=== PATIENT | male | born 1990 | race Two or more races ===

== ENCOUNTER → 2022-06-20 12:51 | Outpatient (BNVA) | payer OTHER, SELFPAY | PROVIDERS: PCP Internal Medicine; Visit Provider Internal Medicine | DX: K50.10 Crohn's disease of large intestine without complications (principal) | CPT/HCPCS: 99202; 99212 ==

== ENCOUNTER 2022-07-14 09:47 | Outpatient (REF) | payer OTHER, SELFPAY ==
[2022-07-14 10:57] LABS: Hemoglobin 15.3 g/dl (14.0-18.0); Mean Corpuscular HGB Conc 32.6 g/dl (31.0-36.0); Mean Corpuscular Hemoglobin 28.1 pg (27.0-33.0); Mean Corpuscular Volume 86.2 fL (80.0-98.0); Mean Platelet Volume 9.8 fL (9.4-12.4); Platelet Count 258 X10*3/uL (160-400); Red Blood Count 5.45 X10*6/uL (4.60-5.80); Red Cell Distribution Width 13.2 % (11.0-16.0)
[2022-07-14 11:44] LABS: Erythrocyte Sedimentation Rate 7 MM/HR (0-15)
[2022-07-14 12:09] LABS: Alanine Aminotransferase 61 U/L (0-40); Albumin Level 4.7 g/dL (3.5-5.0); Alkaline Phosphatase 104 U/L (39-117); Anion Gap 14 (12-20); Aspartate Amino Transferase 39 U/L (5-37); Bilirubin Total 0.4 mg/dL (0.0-1.0); Blood Urea Nitrogen 16 mg/dL (9-16); C Reactive Protein 0.25 mg/dL (< or = 0.50); Calcium 9.6 mg/dL (8.4-10.2); Carbon Dioxide 27 mmol/L (22-29); Chloride 103 mmol/L (96-108); Estimated Glomerular Filt Rate > 60; Glucose Random 89 mg/dL (60-115); Potassium 3.9 mmol/L (3.3-5.1); Sodium 140 mmol/L (135-145)
[2022-07-14 12:14] LABS: TSH reflex Free T4 1.27 uIU/mL (0.32-4.0)
[2022-07-14 12:19] LABS: Hepatitis A Antibody IgG Nonreactive (Nonreactive); ~Hepatitis A Antibody IgG 0.26 S/CO (0.00-0.99)
[2022-07-14 12:25] LABS: HBS Num1 0.49 mIU/mL (0-7.99); HBc Num1 0.08 S/CO (0.00-0.79); HBsAGNum1 0.27 S/CO (0.00-0.99); Hepatitis A Antibody IgM 0.15 Index (0-0.79); Hepatitis B Core Antibody Nonreactive (Nonreactive); Hepatitis B Surface Antigen Negative (Negative); ~HepC Num1 0.27 S/CO (0.00-0.79); ~Hepatitis A Antibody IgM Nonreactive (Nonreactive); ~Hepatitis B Surface Antibody NONREACTIVE (Nonreactive); ~Hepatitis C Antibody Nonreactive (Nonreactive)
[2022-07-14 12:32] LABS: Thyroid Stimulating Hormone 1.18 uIU/mL (0.32-4.0)
[2022-07-14 12:33] LABS: HBS Num1 0.32 mIU/mL (0-7.99); HBc Num1 0.16 S/CO (0.00-0.79); HBsAGNum1 0.24 S/CO (0.00-0.99); HIV AB/AG Nonreactive (Nonreactive); HIV Num 1 0.06 S/CO (0.00-0.99); Hepatitis B Core Antibody Nonreactive (Nonreactive); Hepatitis B Surface Antigen Negative (Negative); ~HepC Num1 0.27 S/CO (0.00-0.79); ~Hepatitis B Surface Antibody NONREACTIVE (Nonreactive); ~Hepatitis C Antibody Nonreactive (Nonreactive)
[2022-07-16 13:43] LABS: Immunoglobulin A 316 mg/dL (47-310)
[2022-07-16 14:04] LABS: Transglutaminase IgA <1.0 U/mL
[2022-07-17 01:19] LABS: TS Negative Control Passed; TS Panel A 0; TS Panel B 0; TS Positive Control Passed; TSpotTB Negative (Negative)
[2022-07-23 18:18] LABS: TPMT Activity 14
== END 2022-07-14 09:48 | disposition home or self-care (01) ==
LOC: HO.LAB 09:47
PROVIDERS: Physician Assistant; PCP Internal Medicine; Visit Provider Internal Medicine
DX: Z11.4 Encounter for screening for human immunodeficiency virus [HIV] (principal); R10.9 Unspecified abdominal pain; R19.7 Diarrhea, unspecified; K50.10 Crohn's disease of large intestine without complications; Z78.9 Other specified health status
CPT/HCPCS: 36415; 80053; 82657; 82784; 84443; 85027; 85652; 86140; 86364; 86481; 86704; 86706; 86708; 86709; 86803; 87340; 87389

== ENCOUNTER 2022-07-16 10:15 | Outpatient (REF) | payer OTHER, SELFPAY ==
[2022-07-16 11:13] LABS: CDiff Gene PCR NEGATIVE (Negative)
[2022-07-16 12:06] LABS: Adenovirus F 40/41 Not Detected (Not Detect.); Astrovirus Not Detected (Not Detect.); Campylobacter Not Detected (Not Detect.); Cryptosporidium Not Detected (Not Detect.); Cyclospora cayetanensis Not Detected (Not Detect.); E. coli EAEC Not Detected (Not Detect.); E. coli EPEC Not Detected (Not Detect.); E. coli ETEC Not Detected (Not Detect.); E. coli STEC Not Detected (Not Detect.); Entamoeba histolytica Not Detected (Not Detect.); Giardia lamblia Not Detected (Not Detect.); Norovirus GI/GII Not Detected (Not Detect.); Plesiomonas shigelloides Not Detected (Not Detect.); Rotavirus A Not Detected (Not Detect.); Salmonella Not Detected (Not Detect.); Sapovirus Not Detected (Not Detect.); Shigella sp./EIEC Not Detected (Not Detect.); Vibrio Not Detected (Not Detect.); Vibrio Cholerae Not Detected (Not Detect.); Yersinia enterocolitica Not Detected (Not Detect.)
[2022-07-24 20:19] LABS: Calprotectin, Fecal 368 mcg/g
== END 2022-07-16 10:16 | disposition home or self-care (01) ==
LOC: HO.LNP 10:15
PROVIDERS: Visit Provider Internal Medicine
DX: K50.10 Crohn's disease of large intestine without complications (principal)
CPT/HCPCS: 83993; 87493; 87507

== ENCOUNTER → 2022-07-23 10:41 | Outpatient (BNVA) | payer OTHER, SELFPAY | PROVIDERS: PCP Internal Medicine; Visit Provider Internal Medicine | DX: K50.10 Crohn's disease of large intestine without complications (principal); R74.01 Elevation of levels of liver transaminase levels | CPT/HCPCS: 99212 ==

== ENCOUNTER 2022-07-28 06:45 | Outpatient (REF) | payer OTHER, SELFPAY ==
--- NOTE | ~2022-07-28 | CT_ITS ---
EXAMINATION: CT ENTEROGRAPHY ABDOMEN AND PELVIS WITH CONTRAST CLINICAL INFORMATION: Ulcerative colitis. COMPARISON: None TECHNIQUE: Study performed with oral VoLumen (1350 mL) and 480 mL of water to distend the abdomen. The patient was injected with 85 mL Omnipaque 350 intravenous contrast which was administered without adverse effect. Coronal and sagittal reformatted images were obtained at the technologist's workstation. This CT examination was performed using dose optimization techniques as appropriate, variously including the following: *Automated exposure control *Adjustment of mA and/or kV according to patient size (this includes techniques or standardized protocols for targeted exams where dose is matched to indication/reason for exam; i.e. extremities or head) *Use of iterative reconstruction technique DLP: 419 mGy-cm FINDINGS: GASTROINTESTINAL FINDINGS: Stomach: Well distended and normal in appearance. Small intestine: There is mild dilatation of the proximal small bowel and wall thickening. This may be within normal variant range. No definite evidence of small bowel involvement is seen. Large intestine: There is abnormal appearance of the colon with mild wall thickening and fatty infiltration of the bowel wall. There is prominence of the adjacent vasculature/vasa recta. This is greatest in the sigmoid colon where there is also a haustral appearance. Appearance is suggestive of changes from old inflammatory colitis. No evidence of significant wall thickening or enhancement is seen to suggest acute colitis. No evidence of obstruction or stricture. There is mild diverticulosis.. The appendix is normal. No perirectal changes. Additional findings: Small shotty small bowel mesentery lymphadenopathy. No significant mesenteric or retroperitoneal lymphadenopathy is seen. No abdominal abscess or fistulous tract demonstrated. ABDOMINAL AND PELVIC CT FINDINGS: Liver, gallbladder, biliary tract: There are innumerable small cysts or cystic lesions in the liver. Caroli's disease, polycystic liver disease and biliary hamartomas or von Meyenburg complexes should be considered. The liver is otherwise normal. The gallbladder is normal. There is no biliary duct dilatation. Pancreas: Normal. Spleen: Normal. Adrenal glands and kidneys: Normal. Ureters and bladder: Bladder not optimally distended. Lymphovascular structures: Prominent vasa recta adjacent to the colon. Shotty mesenteric lymphadenopathy. No enlarged lymph nodes. No ascites. No hernia. Bones: Normal Lung bases: Normal. CT/CT enterography IMPRESSION: Changes in the colon suggestive of old inflammatory colitis. No evidence of acute colitis or definite small bowel involvement. Numerous small cystic liver lesions. Differential would include Caroli's disease, polycystic liver disease and biliary hamartomas or von Meyenburg complexes.
[2022-07-28] MEDS: Sorbitol/Mannit/Xanth Imaging 500 ML LIQUID 1500 ML PO (08:47)
[2022-07-28] MEDS: iohexoL 350 MG/ML 100 ML INFUS..BTL IV (08:48)
== END 2022-07-28 06:46 | disposition home or self-care (01) ==
LOC: HO.CT 06:45
PROVIDERS: Visit Provider Physician Assistant
DX: K51.90 Ulcerative colitis, unspecified, without complications (principal); R10.9 Unspecified abdominal pain
CPT/HCPCS: 74177; Q9967

== ENCOUNTER 2022-08-06 06:38 | Day surgery (SDC) | payer OTHER, SELFPAY ==
[2022-08-01 09:38] VITALS: BMI 29.8
--- NOTE | 2022-08-05 10:33 | P.CONAN_ITS ---
Documented by User: Maria R Felipe NP 08/05/22 10:33 HPI - Anesthesia Eval Consult details Narrative: 31yo M for Colonoscopy PMFSH Active Problems Active Problems: All Active Problems (Updated 08/01/22 @ 15:27 by Codi Philippe) Overweight (Acute) Psoriasis (Acute) Mild persistent asthma (Acute) Ulcerative colitis (Acute) Physical exam (Acute) Poor historian (Acute) Abdominal pain (Acute) Crohn's colitis (Acute) Elevated liver transaminase level (Acute) Abnormal liver ultrasound (Acute) Past Medical History Medical History Mild persistent asthma Overweight Physical exam Psoriasis Ulcerative colitis Family History Family History Mother No problems noted. Father No problems noted. Maternal Grandfather Cancer Surgical History Surgical History Hx of colonoscopy No pertinent past surgical history Social History Social History Housing: Apartment Alcohol intake: current Alcohol intake frequency: does not drink Alcohol type: beer Patient Tobacco Use Status: Never used Tobacco e-Cigarette/Vaping Use: Never Used Second Hand Smoke Exposure: No Are you DNR?: No Advance Directives: No Advance Directives Information Provided: Yes Nutrition Risks: No Nutritional Risk service: No Current occupational status: employed Meds Allergies Allergy/AdvReac Type Severity Reaction Status Date / Time shellfish derived AdvReac Intermediate fatigue Verified 08/01/22 15:27 Exam Exam Date and Time: August 05, 2022 1033 Height,Weight and Vital Signs: Height 5 ft 6 in Weight 83.915 kg Pertinent Lab Results Pertinent Lab Results: Laboratory Tests 07/14/22 07/14/22 10:13 10:13 WBC 6.0 Hgb 15.3 Hct 47.0 Plt Count 258 Sodium 140 Potassium 3.9 Chloride 103 Carbon Dioxide 27 BUN 16 Creatinine 0.85 Assessment and Plan Assessment Anesthesia Assessment: Chart Reviewed Documented by User: Nicole Toledo MD 08/06/22 07:53 [facility] Active Problems Active Problems: All Active Problems (Updated 08/01/22 @ 15:27 by Codi Philippe) Overweight (Acute) Psoriasis (Acute) Mild persistent asthma (Acute)- inhaler prn Ulcerative colitis (Acute) Physical exam (Acute) Poor historian (Acute) Abdominal pain (Acute) Crohn's colitis (Acute) Elevated liver transaminase level (Acute) Abnormal liver ultrasound (Acute) Past Medical History Medical History Mild persistent asthma Overweight Physical exam Psoriasis Ulcerative colitis Family History Family History Mother No problems noted. Father No problems noted. Maternal Grandfather Cancer Family history of problems with anesthesia: No Surgical History Surgical History Hx of colonoscopy No pertinent past surgical history History of Problems with Anesthesia: No Social History Social History Housing: Apartment Alcohol intake: current Alcohol intake frequency: does not drink Alcohol type: beer Patient Tobacco Use Status: Never used Tobacco e-Cigarette/Vaping Use: Never Used Second Hand Smoke Exposure: No Are you DNR?: No Advance Directives: No Advance Directives Information Provided: Yes Nutrition Risks: No Nutritional Risk service: No Current occupational status: employed Meds Allergies Allergy/AdvReac Type Severity Reaction Status Date / Time shellfish derived AdvReac Intermediate fatigue Verified 08/01/22 15:27 Exam Height,Weight and Vital Signs: Height 5 ft 6 in Weight 83.915 kg Vital Signs Temp Pulse Resp BP Pulse Ox O2 Del Method 08/06/22 06:42 98.3 F 72 18 119/82 98 Room Air Airway Mallampati Class: II TM Dist: >3cm Neck ROM: Full Loose/Missing/Broken Teeth: No (Denies broken, loose, missing teeth) Heart: RRR Lungs: CTAB Assessment and Plan Assessment Anesthesia Assessment: Anesthesia Plan Discussed Final Anesthetic Review Family History of Problems with Anesthesia: No History of Problems with Anesthesia: No NPO: Yes ASA Class: II Final Preanesthetic Review: No Changes in Pt Med Stat, Meds/Allgs Chart Reviewed, Consent Obtained/Reviewed and Anes Risks/Benef Reviewed Patient Risk: Low Procedure Risk: Low Assessment/Block/Sedation in SS: Assess/Block/Sedation-SS Anesthetic Plan Anesthetic Plan: MAC: Disposition: Standard PACU
[2022-08-06 06:42] VITALS: BP 119/82; PULSE 72; RESP 18; TEMP 36.8; O2SAT 98
[2022-08-06] MEDS: Lactated Ringers 1,000 ML 100 ML IVCONT (07:03)
--- NOTE | 2022-08-06 07:31 | MHC.SHP ---
Pre-Procedural Eval Section A Date of Service: 08/06/22 The patient is an INPATIENT: No The History & Physical has been completed within 30 days and I have reviewed it.: Yes Section B Chief Complaint: Abd pain, diarrhea, colitis Allergies: Allergies Allergy/AdvReac Type Severity Reaction Status Date / Time shellfish derived AdvReac Intermediate fatigue Verified 08/01/22 15:27 Plan Diagnosis/Plan: Unchanged I have reviewed the history and physical and performed a pertinent physical examination on my patient. No changes have occurred unless specified. Time Spent With Patient Time: Total time managing care of this patient today ____ minutes.
--- NOTE | 2022-08-06 07:32 | P.OP_ITS ---
Operative Note Operative Note Date of Service: 08/06/22 Narrative: Procedure: Colonoscopy Indication: Abd pain, diarrhea, colitis Endoscopist: Evelyn Milian MD Anesthesia Provider: Shelia Lin CRNA Anesthesia type: MAC Instrument: Olympus [id number]-H190L Consent: Indication, risks vs benefits, and alternatives were discussed with the patient who gave written informed consent to proceed. An automotive parts interpreter was utilized to assist with the consent. EKG, pulse, pulse oximetry and blood pressure were monitored throughout the procedure. Please see anesthesia flowsheet. Procedure: The patient was brought to the procedure room and placed in the left lateral decubitus position. IV medications were administered by the anesthesia provider in attendance. A digital rectal exam was performed which was normal. Of note patient was noted to have a skin plaque patch above the anus and multiple small ring/target like lesions in upper thighs. The colonoscope was then inserted through the anus and advanced through the colon to the cecum at 75 cm,and terminal ileum. Mucosa was carefully examined under high definition white light as the instrument was slowly withdrawn in a retrograde panoramic fashion. Retroflexion was performed in rectum. The procedure was not difficult. There were no immediate obvious complications. The quality of the prep was BBPS: 3+2+3 = adequate. Withdrawal time 17 minutes. Limitations: No limitations. Findings: Mucosa: Loss of normal vacular pattern and haustral folds in proximal sigmoid colon and distal descending colon. Erythema and exudates noted in the cecum. Ascending colon, transverse colon and rectum appeared normal endoscopically. x2 erosions were noted in terminal ileum within 5 cm of the ileocecal valve. The remaining terminal ileum (intubated up to 15 cm) was normal in appearance. Cold forceps biopsies were taken from terminal ileum and each section of the colon and sent for histology. Protruding lesions: * Medium internal hemorrhoids without stigmata of recent bleeding. Impression: 1. Erosions in distal T.I (biopsy) 2. Erythema and exudates noted in the cecum. (biopsy) 3. Loss of normal vascular pattern and haustral folds in proximal sigmoid colon and distal descending colon. (biopsy) 4. Remaining colon and rectum with normal endoscopic appearance (biopsy) 3. Internal hemorrhoids Recommendations: - Follow path results. - Short course of Prednisone 40mg PO x 7 days followed by a taper. - Treatment with Infliximab 5mg/kg IV as planned will be initiated. - Follow up in office as scheduled.
[2022-08-06 08:27] VITALS: BP 107/71; PULSE 80; RESP 16; TEMP 36.4; O2SAT 97
[2022-08-06 08:42] VITALS: BP 121/81; PULSE 74; RESP 16; TEMP 36.4; O2SAT 97
== END 2022-08-06 09:33 | disposition home or self-care (01) ==
PROVIDERS: PCP Internal Medicine; Visit Provider Internal Medicine
PROC: 0DJD8ZZ Inspection of Lower Intestinal Tract, Via Natural or Artificial Opening Endoscopic (ICD-10-PCS; CPT 45378; principal; 2022-08-06 07:30)
DX: K50.10 Crohn's disease of large intestine without complications (principal); R74.01 Elevation of levels of liver transaminase levels; L41.3 Small plaque parapsoriasis; K64.8 Other hemorrhoids; L40.0 Psoriasis vulgaris; L98.9 Disorder of the skin and subcutaneous tissue, unspecified; J45.20 Mild intermittent asthma, uncomplicated; E66.3 Overweight; Z68.29 Body mass index [BMI] 29.0-29.9, adult; Z79.899 Other long term (current) drug therapy
CPT/HCPCS: 45380; 88305

== ENCOUNTER 2022-08-08 16:13 | Outpatient (REF) | payer OTHER, SELFPAY ==
--- NOTE | ~2022-08-08 | MR_ITS ---
EXAMINATION: MR ABDOMEN WITHOUT AND WITH CONTRAST CLINICAL INFORMATION: Evaluation of liver abnormalities noted on prior CT. COMPARISON: CT enterography 07/28/2022. TECHNIQUE: MR abdomen was performed without and with use of 9 mL intravenous Gadavist gadolinium contrast. Postcontrast images are performed in multiphase dynamic sequences. Imaging was performed in 3 planes. FINDINGS: Examination is limited due to motion. LUNG BASES: Lung bases are clear. LIVER, GALLBLADDER, AND BILIARY TREE: The liver is normal in size, shape and attenuation with innumerable T2 bright/precontrast T1 dark liver lesions scattered throughout the parenchyma. Unfortunately, postcontrast images are very degraded by motion and assessment of the enhancement pattern of these lesions is suboptimal. However accounting for this limitation, some of these demonstrate an equivocal enhancing central dot sign, that could represent portal radicles, for instance as visualized on series 102 images 50 and 61. PANCREAS: Unremarkable with the caveat that postcontrast images are significantly degraded by motion. SPLEEN: Normal size. No discrete focal lesion. ADRENAL GLANDS: No adrenal mass or nodule. KIDNEYS AND URETERS: Evaluation of the left kidney is very limited due to motion. The right kidney is unremarkable. GASTROINTESTINAL TRACT: No pericolonic inflammatory changes. No evidence of bowel obstruction. ABDOMINAL WALL: No significant hernia is appreciated. LYMPH NODES: No pathologically enlarged lymph nodes. VASCULAR: Abdominal aorta is of normal diameter. Evaluation of the vasculature on postcontrast images is limited due to motion. OSSEOUS STRUCTURES: No aggressive-appearing osseous abnormalities. MR/MR abdomen wo/w con IMPRESSION: Innumerable T2 bright liver lesions for which differential considerations include type V choledochal cysts/Caroli disease, simple cysts and biliary hamartomas. Unfortunately, postcontrast images are very degraded by motion limiting assessment of the enhancement characteristics of these lesions. However, there is suggestion of some central dot signs which could indicate the present of portal radicles within cystic dilatation of intrahepatic bile ducts that would favor Caroli disease. Recommend GI specialist consultation and if deemed appropriate a repeat imaging to decreased motion degradation.
== END 2022-08-08 16:14 | disposition home or self-care (01) ==
LOC: HO.MRI 16:13
PROVIDERS: Visit Provider Internal Medicine
DX: R93.2 Abnormal findings on diagnostic imaging of liver and biliary tract (principal); R74.01 Elevation of levels of liver transaminase levels
CPT/HCPCS: 74183; A9585

== ENCOUNTER 2022-08-19 10:59 | Outpatient (REF) | payer OTHER, SELFPAY ==
[2022-08-19 11:23] LABS: MANUAL DIFF FLAG NO
[2022-08-19 11:44] LABS: Basophils Percent Auto 0.3 % (0-2); Eosinophils Percent Auto 0.3 % (0-4); Hematocrit 46.7 % (42.0-52.0); Hemoglobin 15.4 g/dl (14.0-18.0); Imm Gran Abs Auto 0.05 X10*3/uL (0.00-0.03); Imm Gran Pct Auto 0.5 % (0.0-0.4); Lymphocytes Absolute Auto 1.2 X10*3/uL (1.2-4.9); Lymphocytes Percent Auto 11.7 % (20-40); Mean Corpuscular Hemoglobin 28.3 pg (27.0-33.0); Mean Corpuscular Volume 85.7 fL (80.0-98.0); Mean Platelet Volume 9.9 fL (9.4-12.4); Monocytes Absolute Auto 0.8 X10*3/uL (0.1-1.2); Monocytes Percent Auto 7.5 % (2-11); Neutrophils Absolute Auto 8.3 x10*3/uL (2.0-8.3); Neutrophils Percent Auto 79.7 % (45-73); Platelet Count 265 X10*3/uL (160-400); Red Blood Count 5.45 X10*6/uL (4.60-5.80); Red Cell Distribution Width 13.2 % (11.0-16.0); White Blood Count 10.4 X10*3/uL (4.8-10.8)
[2022-08-19 12:38] LABS: Alanine Aminotransferase 54 U/L (0-40); Albumin Level 4.7 g/dL (3.5-5.0); Alkaline Phosphatase 90 U/L (39-117); Anion Gap 12 (12-20); Aspartate Amino Transferase 30 U/L (5-37); Bilirubin Total 0.3 mg/dL (0.0-1.0); Blood Urea Nitrogen 17 mg/dL (9-16); C Reactive Protein 0.41 mg/dL (< or = 0.50); Calcium 9.8 mg/dL (8.4-10.2); Carbon Dioxide 28 mmol/L (22-29); Chloride 102 mmol/L (96-108); Estimated Glomerular Filt Rate > 60; Glucose Random 97 mg/dL (60-115); Potassium 4.3 mmol/L (3.3-5.1); Sodium 138 mmol/L (135-145); Total Protein 8.2 g/dL (6.5-8.0)
[2022-08-20 03:59] LABS: Syphilis Screen Nonreactive (Nonreactive)
[2022-08-20 04:49] LABS: HIV AB/AG Nonreactive (Nonreactive); HIV Num 1 0.08 S/CO (0.00-0.99)
[2022-08-22 05:14] LABS: TS Negative Control Passed; TS Panel A 0; TS Panel B 0; TS Positive Control Passed; TSpotTB Negative (Negative)
== END 2022-08-19 11:00 | disposition home or self-care (01) ==
LOC: HO.LAB 10:59
PROVIDERS: Nurse Practitioner Family; Physician Assistant; PCP Internal Medicine; Visit Provider Internal Medicine
DX: Z11.4 Encounter for screening for human immunodeficiency virus [HIV] (principal); Z11.1 Encounter for screening for respiratory tuberculosis; K51.90 Ulcerative colitis, unspecified, without complications
CPT/HCPCS: 36415; 80053; 85025; 86140; 86481; 86780; 87389

== ENCOUNTER → 2022-08-26 10:43 | Outpatient (BNVA) | payer OTHER, SELFPAY | PROVIDERS: PCP Internal Medicine; Visit Provider Internal Medicine | DX: K50.10 Crohn's disease of large intestine without complications (principal); R10.9 Unspecified abdominal pain; R74.01 Elevation of levels of liver transaminase levels; Q44.5 Other congenital malformations of bile ducts | CPT/HCPCS: 99212 ==

== ENCOUNTER 2022-09-03 09:42 | Outpatient (REF) | payer OTHER, SELFPAY ==
--- NOTE | ~2022-09-03 | MM_ITS ---
EXAMINATION: BONE DENSITOMETRY CLINICAL INDICATION: Other congenital malformations of bile ducts. Male, age 32. COMPARISON: None (current study represents initial baseline exam). TECHNIQUE: Using a [employer] DXA System (software version: 13.1) manufactured by [employer], dual-energy x-ray absorptiometry was performed of the lumbar spine and left hip. The images are of good technical quality. Based on ISCD (International Society for Clinical Densitometry) standards of reporting, Z-scores instead of T-scores are reported in this 32-year-old male. Summary results are attached. FINDINGS: AP SPINE L1-L4: BMD 1.288 g/cm2, T-score 0.6, Z-score 0.4, Z-score within expected range for age. LEFT FEMUR, NECK: BMD 1.253 g/cm2, T-score 1.4, Z-score 1.4, Z-score within expected range for age. LEFT FEMUR, TOTAL: BMD 1.199 g/cm2, T-score 0.7, Z-score 0.7, Z-score within expected range for age. IDENTIFIED RISK FACTORS: Secondary osteoporosis. HISTORY OF FRACTURE: None listed. MEDICATIONS: None listed. MM/XR DEXA axial skeleton IMPRESSION: 1. DIAGNOSIS: Based on the lowest Z-score value of 0.4 in the lumbar spine, the patient's bone density is within the expected range for age. 2. 10-YEAR FRACTURE RISK PREDICTION, FRAX: Not performed in this patient outside the age range of 50-90 years. 3. Treatment Recommendations: NOF guidelines recommend consideration for treatment in postmenopausal women and men age 50 and older presenting with the following: -A hip or vertebral (clinical or morphometric) fracture. -T-score less than or equal to -2.5 at the femoral neck or spine after appropriate evaluation to exclude secondary causes. -Low bone mass at the hip or spine and a 10-year fracture probability by FRAX of greater than or equal to 3% for hip fracture or greater than or equal to 20% for major osteoporotic fracture based on the [place] adapted WHO algorithm. 4. Other Recommendations: All treatment decisions require clinical judgment and consideration of individual patient factors, including patient preferences, comorbidities, previous drug use, risk factors not captured in the FRAX model (e.g. frailty, falls, vitamin D deficiency, increased bone turnover, interval significant decline in bone density) and possible under or overestimation of fracture risk by FRAX. FUTURE SCAN RECOMMENDATION: People with diagnosed cases of osteoporosis or at high risk for fracture should have regular bone mineral density tests. For patients eligible for Medicare, routine testing is allowed once every 2 years. The testing frequency can be increased to one year for patients who have rapidly progressing disease, those who are receiving or discontinuing medical therapy to restore bone mass, or have additional risk factors.
== END 2022-09-03 09:43 | disposition home or self-care (01) ==
LOC: HO.MAMMO 09:42
PROVIDERS: PCP Internal Medicine; Visit Provider Internal Medicine
DX: Z13.820 Encounter for screening for osteoporosis (principal); Q44.5 Other congenital malformations of bile ducts
CPT/HCPCS: 77080

== ENCOUNTER 2022-09-11 07:19 | Outpatient (REF) | payer OTHER, SELFPAY ==
[2022-09-12 02:44] LABS: CT PCR NOT DETECTED (Not Detect.); NG PCR NOT DETECTED (Not Detect.)
[2022-09-18 23:04] LABS: Calprotectin, Fecal 314 mcg/g
== END 2022-09-11 07:20 | disposition home or self-care (01) ==
LOC: HO.LAB 07:19
PROVIDERS: Absent Provider Internal Medicine; PCP Internal Medicine; Visit Provider Internal Medicine
DX: Z11.3 Encounter for screening for infections with a predominantly sexual mode of transmission (principal); K50.10 Crohn's disease of large intestine without complications
CPT/HCPCS: 0353U; 83993

== ENCOUNTER 2022-09-17 09:57 | Outpatient (REF) | payer OTHER, SELFPAY ==
[2022-09-17 11:14] LABS: Alanine Aminotransferase 34 U/L (0-40); Albumin Level 4.6 g/dL (3.5-5.0); Alkaline Phosphatase 98 U/L (39-117); Anion Gap 13 (12-20); Aspartate Amino Transferase 20 U/L (5-37); Bilirubin Total 0.4 mg/dL (0.0-1.0); Blood Urea Nitrogen 14 mg/dL (9-16); Calcium 9.6 mg/dL (8.4-10.2); Carbon Dioxide 27 mmol/L (22-29); Chloride 105 mmol/L (96-108); Cholesterol 189 mg/dL; Estimated Glomerular Filt Rate > 60; Glucose Fasting 90 mg/dL (60-99); HDL Cholesterol 49 mg/dL; Iron 79 mcg/dL (45-160); LDL Cholesterol Calculated 117 mg/dl; Percent Iron Saturation 26 % (15-50); Sodium 141 mmol/L (135-145); Total Iron Binding Capacity 307 mcg/dL (228-428); Total Protein 7.8 g/dL (6.5-8.0); Triglycerides 118 mg/dL; Unsaturated Iron Binding 228 ug/dL
[2022-09-17 11:19] LABS: Ferritin 101 ng/mL (20-250); Vitamin D 25-OH Total 15.7 ng/mL (>30)
[2022-09-17 11:34] LABS: Folate 11.4 ng/mL (> or = 4.0); Vitamin B12 578 pg/mL (200-900)
[2022-09-20 19:34] LABS: Alpha-Tocopherol 10.5 mg/L (5.7-19.9); Beta-Gamma Tocopherol 2.5 mg/L (<=4.3)
[2022-09-21 19:48] LABS: Vitamin K1 1410 pg/mL (130-1500)
[2022-09-24 15:33] LABS: Vitamin A 36 mcg/dL (38-98)
== END 2022-09-17 09:58 | disposition home or self-care (01) ==
LOC: HO.LAB 09:57
PROVIDERS: Absent Provider Internal Medicine; PCP Internal Medicine; Visit Provider Internal Medicine
DX: Z00.00 Encounter for general adult medical examination without abnormal findings (principal); Q44.5 Other congenital malformations of bile ducts; E78.5 Hyperlipidemia, unspecified
CPT/HCPCS: 36415; 80053; 80061; 82306; 82607; 82728; 82746; 83540; 84446; 84590; 84597

== ENCOUNTER 2022-10-10 09:55 | Outpatient (REF) | payer OTHER, SELFPAY | END 2022-10-10 09:56 | disposition home or self-care (01) | LOC: HO.MDS 09:55 | PROVIDERS: Visit Provider Internal Medicine | DX: K51.90 Ulcerative colitis, unspecified, without complications (principal) | CPT/HCPCS: 96413; 96415; J1745 ==

== ENCOUNTER → 2022-10-15 11:57 | Outpatient (BNVA) | payer OTHER, SELFPAY | PROVIDERS: PCP Internal Medicine; Referring Provider Internal Medicine; Visit Provider Internal Medicine | DX: Q44.5 Other congenital malformations of bile ducts (principal); K50.10 Crohn's disease of large intestine without complications; R10.9 Unspecified abdominal pain; R74.01 Elevation of levels of liver transaminase levels | CPT/HCPCS: 99212 ==

== ENCOUNTER 2022-10-22 11:19 | Day surgery (SDC) | payer OTHER, SELFPAY ==
[2022-10-17 11:58] VITALS: BMI 31.3
--- NOTE | 2022-10-21 12:23 | HO.ANESPROP2 ---
HPI - Anesthesia Eval Consult details Narrative: 32yo M for Upper Endoscopy s/p [place] 07/2022 with MAC PMFSH Active Problems Active Problems: All Active Problems (Updated 09/11/22 @ 08:50 by Iram Bettencourt MD) Poor historian (Acute) Abdominal pain (Acute) Crohn's colitis (Acute) Elevated liver transaminase level (Acute) Abnormal liver ultrasound (Acute) Caroli disease (Acute) Encounter for screening examination for sexually transmitted disease (Acute) Vasectomy evaluation (Acute) Overweight (Acute) Psoriasis (Acute) Mild persistent asthma (Acute) Ulcerative colitis (Acute) Physical exam (Acute) Past Medical History Medical History Mild persistent asthma Overweight Physical exam Psoriasis Ulcerative colitis Family History Family History Mother No problems noted. Father No problems noted. Maternal Grandfather Cancer Family history of problems with anesthesia: No Surgical History Surgical History Hx of colonoscopy History of Problems with Anesthesia: No Social History Social History Housing: Apartment Alcohol intake: current Alcohol intake frequency: holidays/special occasions only Alcohol type: beer Patient Tobacco Use Status: Never used Tobacco e-Cigarette/Vaping Use: Never Used Second Hand Smoke Exposure: No service: No Current occupational status: employed Cognitive needs: No Hearing needs: No Vision needs: No Meds Allergies Allergy/AdvReac Type Severity Reaction Status Date / Time shellfish derived AdvReac Intermediate fatigue Verified 10/22/22 12:13 Exam Exam Date and Time: October 21, 2022 1223 Height,Weight and Vital Signs: Height 5 ft 6 in Weight 87.997 kg Assessment and Plan Assessment Anesthesia Assessment: Chart Reviewed Final Anesthetic Review Family History of Problems with Anesthesia: No History of Problems with Anesthesia: No
[2022-10-22 12:05] VITALS: BP 112/82; PULSE 63; RESP 15; TEMP 36.4; O2SAT 98
[2022-10-22] MEDS: Lactated Ringers 1,000 ML 100 ML IVCONT (12:12)
--- NOTE | 2022-10-22 12:28 | MHC.SHP ---
Pre-Procedural Eval Section A Date of Service: 10/22/22 The History & Physical has been completed within 30 days and I have reviewed it.: Yes Section B Chief Complaint: Variceal screening Allergies: Allergies Allergy/AdvReac Type Severity Reaction Status Date / Time shellfish derived AdvReac Intermediate fatigue Verified 10/22/22 12:13 Plan I have reviewed the history and physical and performed a pertinent physical examination on my patient. No changes have occurred unless specified. Time Spent With Patient Time: Total time managing care of this patient today ____ minutes.
--- NOTE | 2022-10-22 12:29 | P.OP_ITS ---
Operative Note Operative Note Date of Service: 10/22/22 Narrative: Procedure: Esophagogastroduodenoscopy Endoscopist: Evelyn Milian MD Indication: R/o portal HTN Anesthesia Provider: Saray Montez CRNA Anesthesia Type: MAC ?? EGD Procedure:?? The procedure, indications, preparation and potential complications were reviewed with the patient, who indicated understanding and gave written informed consent to proceed. A physical exam was performed. The endoscope was introduced through the mouth, and advanced to the second part of duodenum. The mucosa was carefully examined on slow withdrawal of the endoscope. The patient tolerated the procedure well. There were no immediate complications.? ? EGD Findings:? * Esophagus:? Normal mucosa noted in the entire esophagus. The Z line was at 37 cm. * Stomach:? Mild erythema with two erosions were noted in antrum. Random gastric biopsies were taken to rule out H Pylori infection. * Duodenum:? Normal mucosa was noted in the whole of the examined duodenum. ? EGD Impressions:? * Normal esophagus * Gastritis (biopsy) * Normal duodenum ?? Recommendations:?? * No varices or portal hypertensive gastropathy noted on today's exam. * Follow biopsy results. Our office will call or send a letter with results within 7-10 days. * Start/continue PPI therapy. * If H pylori +, patient will be prescribed eradication therapy followed by test of cure. * Avoid NSAIDs. Above has been reviewed with the patient. Relevant educational hand outs were provided at discharge.
[2022-10-22 13:39] VITALS: BP 114/71; PULSE 64; RESP 18; TEMP 36.9; O2SAT 96
[2022-10-22 13:54] VITALS: BP 113/77; PULSE 69; RESP 18; O2SAT 98
[2022-10-22 14:09] VITALS: BP 117/79; PULSE 65; RESP 18; TEMP 37; O2SAT 99
== END 2022-10-22 14:56 | disposition home or self-care (01) ==
PROVIDERS: PCP Internal Medicine; Visit Provider Internal Medicine
PROC: 0DJ08ZZ Inspection of Upper Intestinal Tract, Via Natural or Artificial Opening Endoscopic (ICD-10-PCS; CPT 43235; principal; 2022-10-22 13:00)
DX: R10.10 Upper abdominal pain, unspecified (principal); K29.50 Unspecified chronic gastritis without bleeding; K50.10 Crohn's disease of large intestine without complications; Q44.5 Other congenital malformations of bile ducts; J45.20 Mild intermittent asthma, uncomplicated; R74.01 Elevation of levels of liver transaminase levels; L40.0 Psoriasis vulgaris; E66.3 Overweight; Z68.31 Body mass index [BMI] 31.0-31.9, adult; Z79.899 Other long term (current) drug therapy
CPT/HCPCS: 43239; 88305; 88342; J2250

== ENCOUNTER 2022-10-24 09:11 | Outpatient (REF) | payer OTHER, SELFPAY | END 2022-10-24 09:12 | disposition home or self-care (01) | LOC: HO.MDS 09:11 | PROVIDERS: Visit Provider Internal Medicine | DX: K51.90 Ulcerative colitis, unspecified, without complications (principal) | CPT/HCPCS: 96365; J1745 ==

== ENCOUNTER 2022-11-07 09:14 | Outpatient (REF) | payer OTHER, SELFPAY | END 2022-11-07 09:15 | disposition home or self-care (01) | LOC: HO.MDS 09:14 | PROVIDERS: Visit Provider Internal Medicine | DX: K51.90 Ulcerative colitis, unspecified, without complications (principal) | CPT/HCPCS: 96413; 96415; J1745 ==

== ENCOUNTER 2022-11-21 08:57 | Outpatient (REF) | payer OTHER, SELFPAY ==
--- NOTE | ~2022-11-21 | MR_ITS ---
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 MRI abdomen from 08/08/2022. TECHNIQUE: MR imaging the abdomen performed using standard sequences on a high-field magnet without and with intravenous administration of 8.5 mL Gadavist. FINDINGS: LUNG BASES: Normal. No pulmonary consolidation or pleural effusion. HEPATOBILIARY: Liver has normal size and contour. Again noted are multiple T2 hyperintense cystic-appearing foci throughout the liver. The vast majority of lesions are less than 1 cm, and only a few are in the size range of 1 - 1.3 cm. Note that multiple cystic-appearing foci were also present within the liver on 05/24/2018. 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 Several of the lesions appear to have minimal rim-like enhancement, nodular-like peripheral enhancement or questionable septal-like enhancement. The long-term stability of lesions is consistent with a benign process. There are no suspicious enlarging lesions. There are no solid liver masses. The gallbladder is physiologically distended. No cholelithiasis, gallbladder wall thickening or pericholecystic fluid. Common bile duct is 0.3 cm diameter. There is no intrahepatic bile duct dilatation. PANCREAS: No edema, pancreatic ductal dilatation or mass. SPLEEN: Normal. ADRENAL GLANDS: Normal. KIDNEYS: Kidneys are normal in size. There is a 0.5 cm simple cortical cyst of the lateral interpolar region right kidney. No renal imaging follow-up recommended. No solid renal mass, hydronephrosis or perinephric edema. BOWEL AND PERITONEUM: Stomach is unremarkable. No dilated loops of bowel. No bowel wall thickening or mesenteric fat stranding. No ascites. VASCULATURE: Abdominal aorta is normal in size. The celiac trunk, SMA, GET and renal arteries are widely patent. Inferior vena cava is normal. Splenic, portal and hepatic veins are normal. LYMPH NODES: No pathologic sized lymph nodes in the abdomen. SKELETAL: Unremarkable. MR/MR abdomen wo/w con IMPRESSION: * The gallbladder is normal and there is no evidence of intrahepatic or extrahepatic bile duct dilatation. 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 No suspicious, enlarging liver lesions compared to 05/24/2018.
== END 2022-11-21 08:58 | disposition home or self-care (01) ==
LOC: HO.MRI 08:57
PROVIDERS: PCP Internal Medicine; Visit Provider Internal Medicine
DX: Q44.5 Other congenital malformations of bile ducts (principal)
CPT/HCPCS: 74183

== ENCOUNTER → 2022-11-26 11:03 | Outpatient (BNVA) | payer OTHER, SELFPAY | PROVIDERS: PCP Internal Medicine; Visit Provider Internal Medicine | DX: Q44.5 Other congenital malformations of bile ducts (principal); K50.10 Crohn's disease of large intestine without complications; R10.9 Unspecified abdominal pain; R74.01 Elevation of levels of liver transaminase levels | CPT/HCPCS: 99212 ==

== ENCOUNTER 2023-01-02 09:11 | Outpatient (REF) | payer OTHER, SELFPAY | END 2023-01-02 09:12 | disposition home or self-care (01) | LOC: HO.MDS 09:11 | PROVIDERS: Visit Provider Internal Medicine | DX: K50.10 Crohn's disease of large intestine without complications (principal) | CPT/HCPCS: 36415; 80230; 82542; 96413; 96415; J1745 ==

== ENCOUNTER → 2023-01-27 10:37 | Outpatient (BNVA) | payer OTHER, SELFPAY | PROVIDERS: PCP Internal Medicine; Visit Provider Internal Medicine | DX: K50.10 Crohn's disease of large intestine without complications (principal); R10.9 Unspecified abdominal pain; R74.01 Elevation of levels of liver transaminase levels; R93.2 Abnormal findings on diagnostic imaging of liver and biliary tract | CPT/HCPCS: 99212 ==

== ENCOUNTER 2023-04-22 09:40 | Outpatient (REF) | payer OTHER, SELFPAY | END 2023-04-22 09:41 | disposition home or self-care (01) | LOC: HO.MDS 09:40 | PROVIDERS: Visit Provider Internal Medicine | DX: K51.90 Ulcerative colitis, unspecified, without complications (principal) | CPT/HCPCS: 96374; 96375; J1200; J1745; J2405 ==

== ENCOUNTER 2023-05-27 11:08 | Outpatient (AMB) | payer OTHER, SELFPAY ==
--- NOTE | 2023-05-27 11:10 | A.OFFVIS_ITS ---
Intake Vital Signs 05/27/23 11:12 Height 5 ft 6 in Weight 191 lb 12.835 oz BMI 31.0 BP 124/74 Blood Pressure Location Lt brachial Position Sitting Pulse 73 Intake Visit Reasons: 4 month fu Intake Note: Chaitanya presents in the office as a 4 month follow up. CC: Last time he had his infusion he had an allergic reaction and has not got them since. He states that he is feeling okay. 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 Was on prednisone from Jul 2022 to Aug 2022. * Current: Infliximab 5mg/kg IV (first dose 10/10/22) Colonoscopy 2018: Normal T.I. Diffuse inflammation i n colon. Path: mild chronic inflammation. 2019: Normal T.I Diffuse inflammation in remaining colon. Path mild chronic inflammation with rare non-necrotizing granuloma. 07/2022: Normal T.I on histology. Modera tely active inflammation in whole colon EXCEPT rectum. Multiple granuloma noted, no dysplasia. Imaging 07/2022: MRI: Innumerable T2 bright live r lesions for which differential considerations include type V choledochal cysts/Caroli disease, simple cysts and biliary hamartomas. Unfortunately, postcontrast images are very degraded by motion limiting assessment of the enhancement characteristics of these lesions. However, there is suggestion of some central dot signs which could indicate the present of portal radicles within cystic dilatation of intrahepatic bile ducts that would favor Caroli disease. Initial visit 06/20/22: Currently, reports L sided abdominal pain that has been ongoing for almost a yea r which is waxing and waning triggered by certain foods and associated with loose nonbloody BMs. No N,V. Does not report any weight loss. No family history of inflammatory bowel disease or colon cancer. Grandfather had stomach cancer. 07/23/22: Reports no gastrointestinal complaints today to include abdominal pain, nausea, vomiting or diarrhea. BM are soft and frequent 3-4 times a day without any blood. Labs reviewed, fecal calpro pending. TSPOT and HBV negative. Pt not immune to HAV or HBV. Twinrix series started. 08/26/22: History was obtained from the patient with the help of a educational sign language interpreter. Cont prednisone taper, currently on 20mg PO daily dosing. Reports no gastrointestinal symptoms. Continues to have 2-3 bowel movements every day. No blood in stool. Tells me he is going to [place] in September for his wedding. Was able to review some resources on infliximab, currently no further questions. Reviewed the results of the MRI with the patient. Discussed monitoring for complications from cholestasis. Also reviewed relatively increased risk of CCa. I also mentioned that we will likely obtain another MRI and to 3 months as the previous scan is considerably degraded by motion. 10/15/22 Presents today accompanied by his friend. Infliximab induction started 10/10/2022. Next dose 10/24. Has no gastrointestinal complaints to include abdominal pain, nausea, vomiting, diarrhea. Has 1-2 formed bowel movements every day. No blood. No urgency. Had DEXA scan in August which was within normal limits. EGD to screen for varices scheduled for next week. He still waiting to hear regarding his MRI appointment. 10/22/22: EGD Normal esophagus Gastritis (biopsy) Normal duodenum Path: Stomach, random, biopsy: Antral-type and oxyntic mucosa with mild chronic inactive inflammation and focal intestinal metaplasia in the antrum; negative for dysplasia; no Helicobacter organisms seen. 11/27/22: Presents with his today. No gastrointestinal complaints to include abdominal pain, nausea, vomiting, diarrhea. Has completed infliximab induction. First maintenance dose is scheduled for 01/02. Had his MRI done last week. Report is still pending. EGD findings reviewed with the patient, specifically no evidence of clinically significant portal hypertension. 01/27/23: No gastrointestinal complaints. Last dose of infliximab 01/02. Drug and AB levels excellent. Pt also reports resolution of plaque psoriasis with this. MRI results reviewed again: IMPRESSION: *? The gallbladder is normal and there is no evidence of intrahepatic or extrahepatic bile duct dilatation. *? 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 No suspicious, enlarging liver lesions compared to 05/24/2018. 05/27/23: Here with his today. Reports having a reaction to infliximab last time i.e on 04/22. RN records reviewed: pt complained of chest tightness and subjective feeling of suffocation without any change in vitals including O2 sat, HR and BP. I.e consistent with moderate infusion reaction. [place] better after he was given IV benadryl, hydrocort and zofran. However, seems was then discharged home after 1 hour of monitoring instead of resuming infusion. Currently, reports intermittent R sided abd pain and wonders if it is due to liver cysts. Otherwise no diarrhea. Stools are formed 2 times a day. No blood, urgency or tenesmus. Scheduled for MRI abd next month. Overdue on labs - did not get them done last visit either. COUNTS INCLUDE 234 BEDS AT THE [facility] Medical History Physical exam Ulcerative colitis Mild persistent asthma Psoriasis Overweight Surgical History History of esophagogastroduodenoscopy (EGD) Hx of colonoscopy Family History Mother No problems noted. Father No problems noted. Maternal Grandfather Cancer Social History Housing: Apartment Alcohol intake: current Alcohol intake frequency: holidays/special occasions only Alcohol type: beer Patient Tobacco Use Status: Never used Tobacco e-Cigarette/Vaping Use: Never Used Second Hand Smoke Exposure: No service: No Current occupational status: employed Cognitive needs: No Hearing needs: No Vision needs: No Review of Systems Const All systems reviewed & are unremarkable except as noted in HPI and below Physical Exam Vital Signs: Last Vital Signs Pulse 73 05/27/23 11:12 BP 124/74 05/27/23 11:12 BMI result Body Mass Index 31.0 Gen appear: NAD HEENT: nonicteric, no cervical lymphadenopathy Chest: CTA CVS: Regular S1/S2 Abd: soft, nontender, nondistended, bowel sounds + Ext: no peripheral edema Neuro: A/Ox3, noted to move all extremities spontaneously Psych: interacting appropriately Assessment & Plan Assessment & Plan (1) Abdominal pain: Code(s): R10.9 - Unspecified abdominal pain (2) Crohn's colitis: Code(s): K50.10 - Crohn's disease of large intestine without complications (3) Elevated liver transaminase level: Code(s): R74.01 - Elevation of levels of liver transaminase levels (4) Abnormal liver ultrasound: Code(s): R93.2 - Abnormal findings on diagnostic imaging of liver and biliary tract Plan 1. Crohn's colitis: Infliximab induction completed 11/07/22. Had moderate infusion reaction on 04/22/23 without any changes in vital signs and improvement with IV hydrocort and benadryl. In clinical remission. Drug level 18 and undetectable ATI (01/02/23) Plan: - Disease and therapy: In clinical remission. - Fecal calpro: reordered and pt reminded. - Infliximab 5mg/kg IV q8w. Next dose due around 06/17 but does not seem to be booked. Msg sent to RN. - Given infusion reaction, he will be premedicated prior to the next infusion and we will also initiate it at a lower rate. - Premedication with?prednisone 50mg TID one day before infusion and diphenhydramine 50mg PO 60-90 mins before infusion. Both meds sent to pharmacy. - Infusion rate to start at 10ml/h and increase by 10ml every 15 mins as tolerated to goal 125ml/h. - TDM: Drug level 18 with undetectable antibodies checked 01/02. - Nutrition: Previously low Vit A and D levels. Recheck levels today. - Immunization: Encouraged to receive Covid-19 booster if offered. Influenza vaccine for this season. He should also follow-up with his PCP for remaining age-appropriate vaccines. - Bone Health: Low Vit D levels 15.7 (09/17/22). BMD normal on DXA 08/2022. Recheck Vit D today. - Cancer prevention: IBD dysplasia: N/A dx in 2018. Sun safety discussed. Pt also reminded to seek Derm referral. ? 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 No CSPH on EGD as above. Repeat MRI ordered and scheduled for next month. If stable, will not need further surveillance. Follow up in 4 months Orders: Orders Calprotectin, Fecal Today K50.10 - Crohn's disease of large intestine without complications Complete Blood Count no Diff Today K50.10 - Crohn's disease of large intestine without complications Vitamin D 25-OH Total Today K50.10 - Crohn's disease of large intestine without complications C Reactive Protein Today K50.10 - Crohn's disease of large intestine without complications Comprehensive Met. Panel Today K50.10 - Crohn's disease of large intestine without complications IRON PROFILE Today K50.10 - Crohn's disease of large intestine without complications Ferritin Today K50.10 - Crohn's disease of large intestine without complications Vitamin A Today K50.10 - Crohn's disease of large intestine without complications Vitamin B12 and Folate Today K50.10 - Crohn's disease of large intestine without complications Medications: New diphenhydramine HCl (Benadryl) To be taken 60-90 mins before infusion. Do NOT drive for 12h after taking this medication. 75 mg (3 x 25 mg) PO ONCE 3 caps 0RF prednisone Start 24h before the infusion is due. 50 mg PO TID 1 day 3 tabs 0RF diphenhydramine HCl (Benadryl) To be taken 60-90 mins before infusion. Do NOT drive for 12h after taking this medication. 50 mg (2 x 25 mg) PO ONCE 2 caps 0RF Patient Instructions: Please follow the instructions below for pre-medication prior to next infusion: 1. Start prednisone 50mg three times a day 1 day before the infusion. 2. Take benadryl 50mg 60-90 minutes before the infusion is due. 3. We will also start the infusion at a slower rate and increase as tolerated. Coding Level of Care Code Est Pt Level 5 (49693) Diagnoses Abdominal pain R10.9 Crohn's colitis K50.10 Elevated liver transaminase level R74.01 Abnormal liver ultrasound R93.2
[2023-05-27 11:12] VITALS: BP 124/74; PULSE 73; BMI 31.0
== END 2023-05-27 11:48 | disposition home or self-care (01) ==
PROVIDERS: PCP Internal Medicine; Visit Provider Internal Medicine
DX: K50.10 Crohn's disease of large intestine without complications (principal); R74.01 Elevation of levels of liver transaminase levels; R93.2 Abnormal findings on diagnostic imaging of liver and biliary tract
CPT/HCPCS: 99214

== ENCOUNTER 2023-05-27 11:08 | Outpatient (REF) | payer OTHER, SELFPAY ==
[2023-05-27 16:07] LABS: Alanine Aminotransferase 39 U/L (0-40); Albumin Level 4.4 g/dL (3.5-5.0); Alkaline Phosphatase 86 U/L (39-117); Anion Gap 16 (12-20); Aspartate Amino Transferase 21 U/L (5-37); Bilirubin Total 0.3 mg/dL (0.0-1.0); Blood Urea Nitrogen 17 mg/dL (9-16); C Reactive Protein 0.36 mg/dL (< or = 0.50); Calcium 9.9 mg/dL (8.4-10.2); Carbon Dioxide 23 mmol/L (22-29); Chloride 103 mmol/L (96-108); Estimated Glomerular Filt Rate > 60; Glucose Random 83 mg/dL (60-115); Iron 82 mcg/dL (45-160); Percent Iron Saturation 33 % (15-50); Potassium 4.1 mmol/L (3.3-5.1); Sodium 138 mmol/L (135-145); Total Iron Binding Capacity 251 mcg/dL (228-428); Total Protein 8.1 g/dL (6.5-8.0); Unsaturated Iron Binding 169 ug/dL
[2023-05-27 16:21] LABS: Ferritin 102 ng/mL (20-250); Vitamin D 25-OH Total 24.8 ng/mL (>30)
[2023-05-27 16:36] LABS: Folate 10.1 ng/mL (> or = 4.0); Vitamin B12 492 pg/mL (200-900)
== END 2023-05-27 11:09 | disposition home or self-care (01) ==
LOC: HO.LAB 11:08
PROVIDERS: PCP Internal Medicine; Visit Provider Internal Medicine
DX: R10.9 Unspecified abdominal pain (principal); K50.10 Crohn's disease of large intestine without complications; R74.01 Elevation of levels of liver transaminase levels; R93.2 Abnormal findings on diagnostic imaging of liver and biliary tract
CPT/HCPCS: 36415; 80053; 82306; 82607; 82728; 82746; 83540; 85027; 86140; 99212

== ENCOUNTER 2023-06-02 08:11 | Outpatient (REF) | payer OTHER, SELFPAY ==
[2023-06-09 19:28] LABS: Calprotectin, Fecal 1110 mcg/g
== END 2023-06-02 08:12 | disposition home or self-care (01) ==
LOC: HO.LNP 08:11
PROVIDERS: Visit Provider Internal Medicine
DX: K50.10 Crohn's disease of large intestine without complications (principal); R19.7 Diarrhea, unspecified
CPT/HCPCS: 83993

== ENCOUNTER 2023-06-18 08:03 | Outpatient (REF) | payer OTHER, SELFPAY ==
[2023-06-25 12:29] LABS: Anti-Infliximab Antibody >100 AU (<10); Infliximab Drug Level <0.8 mcg/mL
== END 2023-06-18 08:04 | disposition home or self-care (01) ==
LOC: HO.MDS 08:03
PROVIDERS: Visit Provider Internal Medicine
DX: K51.90 Ulcerative colitis, unspecified, without complications (principal)
CPT/HCPCS: 36415; 80230; 82542; 83520; 96365; 96366; 96375; J1200; J1745; J2405

== ENCOUNTER 2023-06-19 08:11 | Outpatient (REF) | payer OTHER, SELFPAY ==
--- NOTE | ~2023-06-19 | MR_ITS ---
EXAMINATION: MR ABDOMEN WITHOUT AND WITH CONTRAST CLINICAL INFORMATION: Von Meyenburg complexes. COMPARISON: Previous MRI most recent November [address] of the abdomen and pelvis most recent July 2022. TECHNIQUE: MR abdomen was performed without and with use of 8.5 mL intravenous Gadavist gadolinium contrast. Postcontrast images are performed in multiphase dynamic sequences. Imaging was performed in 3 planes. FINDINGS: LUNG BASES: The visualized lung bases are unremarkable. LIVER, GALLBLADDER, AND BILIARY TREE: The liver is normal in size, smooth in contour, and normal in signal.. There are innumerable small cystic lesions seen throughout both lobes of the liver. Largest lesion measures 1.3 cm in the lateral segment of the left lobe. Some lesions may demonstrate mild wall or septal enhancement. 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 No suspicious liver lesion. Normal gallbladder. No intrahepatic or extrahepatic biliary duct dilatation. PANCREAS: Unremarkable. SPLEEN: Normal. ADRENAL GLANDS: Normal. KIDNEYS AND URETERS: The kidneys are normal in size, shape, and enhance symmetrically. Small cyst in the right kidney. No imaging followup recommended. No hydronephrosis. No perinephric stranding. GASTROINTESTINAL TRACT: No bowel obstruction. No ascites or fluid collection. ABDOMINAL WALL: No significant hernia is appreciated. LYMPH NODES: No lymphadenopathy. VASCULAR: Unremarkable. OSSEOUS STRUCTURES: Marrow signal normal. 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
[2023-06-19] MEDS: gadobutroL 10 ML VIAL IVPUSH (09:20)
== END 2023-06-19 08:12 | disposition home or self-care (01) ==
LOC: HO.MRI 08:11
PROVIDERS: PCP Internal Medicine; Visit Provider Internal Medicine
DX: K76.89 Other specified diseases of liver (principal)
CPT/HCPCS: 74183; A9585

== ENCOUNTER 2023-09-24 08:07 | Outpatient (AMB) | payer OTHER, SELFPAY ==
[2023-09-24 08:10] VITALS: BP 124/80; BMI 31.0
--- NOTE | 2023-09-24 08:10 | MHC.PC.OV ---
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 Accompanied by: Self / Same As Patient Allergies infliximab [From Remicade] Adverse Reaction (Severe, Verified 09/24/23 08:21) Difficulty Breathing shellfish derived Adverse Reaction (Intermediate, Verified 09/24/23 08:21) fatigue Medication List - Last Reconciled 09/24/23 by Iram Bettencourt MD albuterol sulfate 90 mcg/actuation (Ventolin HFA) 2 puffs inhalation Q6H PRN 30 days calcipotriene-betamethasone 0.005-0.064 % (Enstilar) 1 appl topical DAILY 4 weeks Tobacco use date assessed: 09/24/23 Dental Screening Dental Screen Date: 09/24/23 Did you have a dental visit in the last 12 months?: Yes Did you have a dental problem in the last 6 months where you did not have access to dental care?: No Was dental information given to patient?: Patient has dentist HPI HPI Comments History of Present Illness Details This is a 33-year-old male with ulcerative colitis that comes today for his physical exam. Ulcerative colitis is follow by Gastroenterology. Has some hair loss in [place] and some skin lesions and will be referred to Dermatology. Also once vasectomy and will be referred to Urology. [facility] Medical History (Updated 09/24/23 @ 08:31 by Iram Bettencourt MD) Crohn's colitis Physical exam Ulcerative colitis Mild persistent asthma Psoriasis Overweight Surgical History History of esophagogastroduodenoscopy (EGD) Hx of colonoscopy Family History Mother No problems noted. Father No problems noted. Maternal Grandfather Cancer Social History Housing: Apartment Alcohol intake: current Alcohol intake frequency: holidays/special occasions only Alcohol type: beer Patient Tobacco Use Status: Never used Tobacco e-Cigarette/Vaping Use: Never Used Second Hand Smoke Exposure: No service: No Current occupational status: employed Cognitive needs: No Hearing needs: No Vision needs: No Questionnaire PHQ-9 Over the last 2 weeks, how often have you been bothered by any of the following problems? 1. Little interest or pleasure in doing things: not at all 2. Feeling down, depressed, or hopeless: not at all 3. Trouble falling or staying asleep, or sleeping too much: not at all 4. Feeling tired or having little energy: not at all 5. Poor appetite or overeating: not at all 6. Feeling bad about yourself - or that you are a failure or have let yourself or your family down: not at all 7. Trouble concentrating on things, such as reading the newspaper or watching television: not at all 8. Moving or speaking so slowly that other people could have noticed. Or the opposite - being so fidgety or restless that you have been moving around a lot more than usual: not at all 9. Thoughts that you would be better off or of hurting yourself in some way: not at all Total score: 0 Depression Screening Interpretation: Negative Depression Screening Done: Yes 11583 - PHQ-9 Billing: Yes Source: Developed by Drs. Francisco Scruggs, Amara Thompson, Festus Hassan and colleagues, with an educational komal from [employer]. Thrive Questionnaire Date Thrive assessed: 09/24/23 I am a: Patient What is your living situation today?: I have a steady place to live Within the past 12 months, did the food you bought not last and you didn't have the money to get more?: Never true Within the past 12 months, did you worry whether your food would run out before you got money to buy more?: Never true Do you have trouble paying for medicines?: No Do you have trouble getting transportation to medical appointments?: No Do you have trouble paying your heating and electricity bill?: No Do you have trouble taking care of your child, family member or friend?: No Do you have trouble with day-to-day activities such as bathing, preparing meals, shopping, managing finances, etc.?: No Are you currently unemployed and looking for a job?: No Are you interested in more education?: No Please select the resources that you would like help with: None Currently or been in a relationship where the following occur: no concerns reported THRIVE Score: 0 AUDIT C Alcohol Use Questionnaire (AUDIT-C) 1. How often do you have a drink containing alcohol?: Monthly or less 2. How many drinks containing alcohol do you have on a typical day when you are drinking?: 1 or 2 3. How often do you have six or more drinks on one occasion?: Never Total Score: 1 Score Reviewed/Action Taken: No GARY-7 AMB Questionnaire GARY-7 Date GARY - 7 assessed: 09/24/23 Feeling nervous, anxious, or on edge: 0 = Not at all Not being able to stop or control worryin = Not at all Worrying too much about different things: 0 = Not at all Trouble relaxin = Not at all Being so restless that it is hard to sit still: 0 = Not at all Becoming easily annoyed or irritable: 0 = Not at all Feeling afraid as if something awful might happen: 0 = Not at all Total GARY-7 score (0-4 normal; 5-9 mild; 10-14 moderate; 15-21 severe): 0 Source: Developed by Drs. Francisco Scruggs, Amara Thompson, Festus Hassan and colleagues, with an educational komal from [employer]. GARY-7 Assessment Billing GARY-7 Assessment Tool: GARY-7 Assessment 60952 Review of Systems Const All systems reviewed & are unremarkable except as noted in HPI and below Eyes Reports no additional complaints, Denies change in vision and Denies other visual disturbances Card Denies chest pain at rest, Denies chest pain with activity, Denies edema, Denies irregular heart rhythm, Denies claudication, Denies dyspnea, Denies dyspnea on exertion, Denies orthopnea, Denies paroxysmal nocturnal dyspnea and Denies slow heart rate Resp Denies cough, Denies dyspnea and Denies dyspnea on exertion GI Denies abdominal pain, Denies change in bowel habits, Denies excessive flatus, Denies nausea and Denies vomiting Denies urinary hesitancy, Denies urinary incontinence and Denies urinary urgency Musc Denies abnormal gait, Denies atrophy, Denies deformity and Denies limited range of motion Skin/Breast Denies bleeding lesions, Denies changing lesions and Denies rash Neuro Denies abnormal gait and Denies lack of coordination Physical exam (Primary Care) Vital Signs: Last Vital Signs BP 124/80 09/24/23 08:10 BMI result Body Mass Index 31.0 Tobacco/Smoking Status: Tobacco use Status Tobacco use date assessed 09/24/23 09/24/23 08:16 Patient Tobacco Use Status Never used Tobacco 09/24/23 08:16 e-Cigarette/Vaping Use Never Used 09/24/23 08:16 PHQ-9: PHQ-9 Score PHQ-9: Total score 0 09/24/23 08:16 Depression Screening Interpretation: Negative Thrive Assessment: Date of Thrive Assessment Date Thrive assessed 09/24/23 09/24/23 08:16 Currently or been in a relationship where the following occur: no concerns reported Const Orientation/consciousness: patient oriented x3 HENMT Head: Yes normal to inspection, Yes normocephalic and Yes atraumatic Ears: external ears normal Eyes General: appearance normal, both eyes and all related structures Eyelids: Yes eyelids normal Conjunctivae: conjunctivae normal Neck Neck: Yes normal visual inspection and Yes supple Resp Effort & Inspection: normal respiratory effort Auscultation: clear to auscultation bilaterally Cardio Jugular venous distension: no JVD Rate: regular rate Rhythm: regular rhythm Heart sounds: S1 normal heart sound present and S2 normal heart sound present GI Inspection: Yes normal to inspection Palpation (GI): Soft to palpation and nontender Auscultation: normal bowel sounds Skin General skin exam: no rashes or lesions noted Neuro General: patient oriented x3 and no focal motor deficits Extrem General: Yes full ROM Psych Appearance: grossly normal Assessment and Plan Assessment & Plan (1) Physical exam: Code(s): Z00.00 - Encounter for general adult medical examination without abnormal findings Plan: Repeat in a year. (2) Ulcerative colitis: Comment: Pt to go to practice and get records Reschedule with Dr. Milian as was scheduled to see today--for Tx Code(s): K51.90 - Ulcerative colitis, unspecified, without complications Plan: Follow by Gastroenterology. Orders: Referrals Dermatology Referral L65.9 - Nonscarring hair loss, unspecified, L98.9 - Disorder of the skin and subcutaneous tissue, unspecified Urology Referral Z30.09 - Encounter for other general counseling and advice on contraception Coding Level of Care Code Est Pt Prev Care 18-39y(27747) Diagnoses Physical exam Z00.00 Ulcerative colitis K51.90 Additional Codes GARY-7 Assessment Billing - GARY-7 Assessment Tool: GARY-7 Assessment 85318 ([id number]) Time Spent (min) 32
== END 2023-09-24 08:29 | disposition home or self-care (01) ==
PROVIDERS: Visit Provider Internal Medicine
DX: Z00.00 Encounter for general adult medical examination without abnormal findings (principal); K51.90 Ulcerative colitis, unspecified, without complications
CPT/HCPCS: 99395